=== PATIENT | male | born 1980 | race Caucasian/White ===

== ENCOUNTER 2017-07-23 10:02 | Emergency (ER) | payer BC, OTHER ==
[2017-07-23] MEDS ORDERED: RINGERS SOLUTION,LACTATED 1,000 ML IV ONE (10:17)
[2017-07-23] MEDS ORDERED: ONDANSETRON HCL INJ/PF 4 MG/2 ML SDV IV ONE (10:20)
[2017-07-23] MEDS ORDERED: KETOROLAC TROMETHAMINE INJ/PF 30 MG/1 ML SDV IV ONE (10:20)
--- NOTE | 2017-07-23 10:24 | ER Document Report ---
ED General - General Chief Complaint: Vomiting/Diarrhea Stated Complaint: VOMITING Time Seen by Provider: 07/23/17 10:16 TRAVEL OUTSIDE OF THE [place] 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 Patient states feeling shaky today therefore came to the ER for further evaluation. Patient does smoke however denies any alcohol or drug abuse. Patient states he was able tolerate Gatorade yesterday. States multiple bouts of vomiting diarrhea. No recent travel no recent antibiotics no sick contacts - Related Data Allergies/Adverse Reactions: codeine [Codeine] Allergy (Verified 07/23/17 10:02) Penicillins Allergy (Verified 07/23/17 10:02) Past Medical History - Social History Smoking Status: Unknown if Ever Smoked Family History: CAD, DM, Hypertension, Other - anemia, A f-b - Past Medical History Cardiac Medical History: Reports: Hx Atrial Fibrillation - reports everytime he comes here they cannot find it but was seen in [place] Pulmonary Medical History: Reports: Hx Asthma Psychiatric Medical History: Reports: Hx Depression Past Surgical History: Reports: Hx Oral Surgery - Immunizations Hx Diphtheria, Pertussis, Tetanus Vaccination: Yes Review of Systems - Review of Systems Constitutional: No symptoms reported EENT: No symptoms reported Cardiovascular: No symptoms reported Respiratory: No symptoms reported Gastrointestinal: Diarrhea, Nausea, Vomiting Genitourinary: No symptoms reported Male Genitourinary: No symptoms reported Musculoskeletal: No symptoms reported Skin: No symptoms reported Hematologic/Lymphatic: No symptoms reported Neurological/Psychological: No symptoms reported -: Yes All other systems reviewed and negative Physical Exam - Vital signs Vitals: Temp Pulse Resp BP Pulse Ox 99.5 F 86 18 151/92 H 100 07/23/17 10:06 07/23/17 10:06 07/23/17 10:06 07/23/17 10:06 07/23/17 10:06 Interpretation: Normal - General General appearance: Appears well, Alert - HEENT Head: Normocephalic, Atraumatic Eyes: Normal Pupils: PERRL Mucous membranes: Dry, Other - Dry lips and tacky tongue - Respiratory Respiratory status: No respiratory distress Chest status: Nontender Breath sounds: Normal Chest palpation: Normal - Cardiovascular Rhythm: Regular Heart sounds: Normal auscultation Murmur: No - Abdominal Inspection: Normal Distension: No distension Bowel sounds: Normal Tenderness: Nontender Organomegaly: No organomegaly - Back Back: Normal, Nontender - Extremities General upper extremity: Normal inspection, Nontender, Normal color, Normal ROM , Normal temperature General lower extremity: Normal inspection, Nontender, Normal color, Normal ROM , Normal temperature, Normal weight bearing. No: Rafiq's sign - Neurological Neuro grossly intact: Yes Cognition: Normal Orientation: AAOx4 [place] Coma Scale Eye Opening: Spontaneous Germaine Coma Scale Verbal: Oriented [place] Coma Scale Motor: Obeys Commands Germaine Coma Scale Total: 15 Speech: Normal Motor strength normal: LUE, RUE, LLE, RLE Sensory: Normal - Psychological Associated symptoms: Normal affect, Normal mood - Skin Skin Temperature: Warm Skin Moisture: Dry Skin Color: Normal Course - Re-evaluation Re-evalutation: 07/23/17 12:35 The patient presents with n/v/d without signs of peritonitis or other life- threatening or serious etiology. The patient appears stable for discharge and has been instructed to return immediately if the symptoms worsen in any way, or in 8-12hr if not improved for re-evaluation. The patient has been instructed to return if the symptoms worsen or change in any way. - Vital Signs Vital signs: Temp Pulse Resp BP Pulse Ox 99.5 F 86 18 151/92 H 100 07/23/17 10:06 07/23/17 10:06 07/23/17 10:06 07/23/17 10:06 07/23/17 10:06 - Laboratory Result Diagrams: 07/23/17 10:40 07/23/17 10:40 Laboratory results interpreted by me: 07/23/17 07/23/17 10:40 10:40 MCV 100 H MCH 34.3 H Glucose 115 H Discharge - Discharge Clinical Impression: Nausea vomiting and diarrhea Condition: Good Instructions: Gastroenteritis (adult) ([facility]) Additional Instructions: Recommend taking Tylenol Motrin for fevers and pain control. Also recommend taking Zofran or anything and provided. Please be aware that Phenergan may make you little bit sleepy. Return to ER for any concerns. Eat yogurt to help out with the diarrhea also he can increase her fiber to help out with diarrhea. Return to ER symptoms worsen. Prescriptions: Ondansetron [Zofran Odt] 4 mg PO Q6 PRN #30 tab.rapdis PRN Reason: For Nausea/Vomiting Promethazine HCl [Phenergan 25 mg Tablet] 25 mg PO Q6 #30 tablet Forms: Return to Work
[2017-07-23 10:53] LABS: ABSOLUTE EOSINOPHILS # (AUTO) 0.2 10^3/uL (0.0-0.6); ABSOLUTE LYMPHOCYTES (AUTO) 1.1 10^3/uL (0.5-4.7); ABSOLUTE MONOCYTES (AUTO) 0.7 10^3/uL (0.1-1.4); BASOPHILS % (AUTO) 0.1 % (0-2); HEMATOCRIT 48.5 % (37.9-51.0); HEMOGLOBIN 16.6 g/dL (13.5-17.0); LYMPHOCYTES % (AUTO) 15.5 % (13-45); MEAN CORPUSCULAR HEMOGLOBIN 34.3 pg (27.0-33.4); MEAN CORPUSCULAR HGB CONC 34.1 g/dL (32.0-36.0); MEAN CORPUSCULAR VOLUME 100 fl (80-97); MONOCYTES % (AUTO) 9.5 % (3-13); PLATELET COUNT 179 10^3/uL (150-450); RED BLOOD COUNT 4.83 10^6/uL (4.35-5.55); RED CELL DISTRIBUTION WIDTH 13.1 % (11.5-14.0); SEGMENTED NEUTROPHILS % (AUTO) 71.9 % (42-78); TOTAL CELLS COUNTED % (AUTO) 100 %
[2017-07-23 11:09] LABS: ANION GAP 14 (5-19); BLOOD UREA NITROGEN 11 mg/dL (7-20); CALCIUM 9.6 mg/dL (8.4-10.2); CARBON DIOXIDE 25 mmol/L (22-30); CHLORIDE 103 mmol/L (98-107); GLUCOSE 115 mg/dL (75-110); POTASSIUM 4.4 mmol/L (3.6-5.0); SODIUM 141.9 mmol/L (137-145)
[2017-07-23 12:40] VITALS: BP 138/83
== END 2017-07-23 12:40 | disposition home or self-care (01) ==
LOC: ER 10:02
DX: R11.2 Nausea with vomiting, unspecified (principal); R19.7 Diarrhea, unspecified; J45.909 Unspecified asthma, uncomplicated
CPT/HCPCS: 99284; 96361; 96374; 96375; 36415; 85025; 80048; J1885; J2405; J7120

== ENCOUNTER 2017-09-05 09:10 | Emergency (ER) | payer OTHER ==
[2017-09-05] MEDS ORDERED: ADENOSINE INJ/PF 6 MG/2 ML SDV IV ONE (09:30)
[2017-09-05] MEDS ORDERED: VERAPAMIL HCL INJ/PF 5 MG/2 ML SDV IV ONE ×2 (09:36→09:37)
[2017-09-05] MEDS ORDERED: DILTIAZEM HCL/D5W 125 MG/125 ML RTUINJ IV PRN (09:37)
[2017-09-05] MEDS ORDERED: NORMAL SALINE 1000 ML 1,000 ML IV ONE (09:42)
[2017-09-05] MEDS ORDERED: METOPROLOL TARTRATE PF/INJ 5 MG/5 ML SDV IV ONE (09:45)
--- NOTE | 2017-09-05 10:02 | EKG REPORT ---
SEVERITY:- ABNORMAL ECG - ATRIAL FIBRILLATION, RVR BORDERLINE T ABNORMALITIES, INFERIOR LEADS : Confirmed by: Rufus Clement 05-Sep-2017 10:00:35
--- NOTE | 2017-09-05 10:12 | ER Document Report ---
ED Cardiac - General Chief Complaint: Chest Pain Stated Complaint: CHEST PAIN Time Seen by Provider: 09/05/17 09:28 Notes: Patient awakened around 4 AM this morning and went let his dogs outside. When he returned to bed, he began to note his heart beating fast and irregular. He has known paroxysmal atrial fibrillation for 20 years. His mother says that he first had this condition when he was 17 and his heart rate was going about 300 a minute. He is not currently on any medications because he does not have enough money to pay for a doctor or the medications. He has been on medications in the past, but he says he still would get breakthrough rapid heart rate several times a year. He is never been considered for any ablation therapy. Patient has no other significant past medical history. At this time, he has some achy discomfort in the chest but no other significant symptoms. TRAVEL OUTSIDE OF THE [place] IN LAST 30 DAYS: No - Related Data Allergies/Adverse Reactions: codeine [Codeine] Allergy (Verified 09/05/17 09:13) Penicillins Allergy (Verified 09/05/17 09:13) Past Medical History - Social History Smoking Status: Current Every Day Smoker Chew tobacco use (# tins/day): - 15 Frequency of alcohol use: Occasional Drug Abuse: None Family History: Reviewed & Not Pertinent, CAD, DM, Hypertension, Other - anemia , A f-b Patient has suicidal ideation: No Patient has homicidal ideation: No - Past Medical History Cardiac Medical History: Reports: Hx Atrial Fibrillation - reports everytime he comes here they cannot find it but was seen in [place] Pulmonary Medical History: Reports: Hx Asthma Psychiatric Medical History: Reports: Hx Depression Past Surgical History: Reports: Hx Oral Surgery - Immunizations Hx Diphtheria, Pertussis, Tetanus Vaccination: Yes Review of Systems - Review of Systems Notes: REVIEW OF SYSTEMS: CONSTITUTIONAL : Denies fever. EENT: Denies eye, ear, nose or mouth or throat pain or other symptoms. CARDIOVASCULAR: See HPI. RESPIRATORY: Denies cough, chest congestion, or shortness of breath. GASTROINTESTINAL: Denies abdominal pain or nausea, vomiting, or diarrhea. GENITOURINARY: Denies difficulty or painful urinating, urinary frequency, blood in urine. MUSCULOSKELETAL: Denies back or neck pain. Denies joint pain or swelling. SKIN: Denies rash or skin lesions. NEUROLOGICAL: Denies LOC or altered mental status. Denies headache. Denies sensory loss or motor deficits. ALL OTHER SYSTEMS REVIEWED AND NEGATIVE. Physical Exam - Vital signs Vitals: Resp BP Pulse Ox 12 141/91 H 99 09/05/17 09:26 09/05/17 09:26 09/05/17 09:26 Interpretation: Tachycardic - Irregularly irregular - Notes Notes: PHYSICAL EXAMINATION: GENERAL: Well-appearing, in no acute distress. HEAD: Atraumatic, normocephalic. EYES: Pupils equal round and reactive to light, extraocular movements intact. ENT: oropharynx clear without exudates. Moist mucous membranes. NECK: Normal range of motion, supple. LUNGS: Breath sounds clear and equal bilaterally. HEART: Irregularly irregular rate and rhythm without murmurs. Heart rate 160 upon arrival. ABDOMEN: Soft, nontender. No guarding or rebound. No masses. BACK: No tenderness throughout entire back. EXTREMITIES: Normal range of motion without pain. NEUROLOGICAL: Normal speech, normal gait. Normal sensory, motor, and reflex exams. Awake, alert, and oriented x3. Cranial nerves normal. PSYCH: Normal mood, normal affect. SKIN: Warm, dry, no rashes. Course - Re-evaluation Re-evalutation: 09/05/17 10:09 Hospital is out of [facility]. Has been given 5 mg of verapamil IV and 5 mg of Lopressor IV. Heart rate is down to about 90-100 but still in atrial fibrillation. 09/05/17 10:41 Still in atrial fib, and heart rate has crept back up to about 115. I am going to give him some Lanoxin 0.25 mg IV. 09/05/17 12:00 Patient does not want to stay here any longer. He wants to go home and wait it out. He has done that in the past successfully. He definitely does not want to have electrical defibrillation. He has never had that before and says it is not going to happen today. Patient understands that he runs a risk of having a stroke. Labs look acceptable. Discussed with Dr. Fam. He advises Lopressor, aspirin, and follow-up in the office with him next week. - Vital Signs Vital signs: Temp Pulse Resp BP Pulse Ox 11 L 135/91 H 100 09/05/17 12:01 09/05/17 12:01 09/05/17 12:01 - Laboratory Result Diagrams: 09/05/17 09:25 09/05/17 09:25 Laboratory results interpreted by me: 09/05/17 09/05/17 09:25 09:25 Hgb 17.8 H Hct 52.3 H MCV 102 H MCH 34.8 H Sodium 147.8 H Glucose 129 H Calcium 10.8 H AST 79 H ALT 79 H Albumin 5.1 H Critical Care Note - Critical Care Note Total time excluding time spent on procedures (mins): 45 Discharge - Discharge Clinical Impression: Atrial fibrillation Condition: Stable Disposition: HOME, SELF-CARE Additional Instructions: Atrial Fibrillation Atrial fibrillation is an abnormal heart rhythm, caused by irregular electrical circuits in the upper heart chamber. It can be caused by heart valve disease, hardening of the arteries, or metabolic problems such as thyroid disease, or may occur without a clear cause. Atrial fibrillation may occur only occasionally, or may be chronic. Atrial fibrillation often results in a very fast heart rate, with palpitations, lightheadedness, and shortness of breath. Treatment is to slow the abnormally fast rate, and to convert the rhythm back to normal, if possible. Many patients stay in atrial fibrillation for years without symptoms or complications. Your doctor will decide whether you can be converted back to a normal heart rhythm. Contact the doctor or emergency medical system at once if you develop chest pain, shortness of breath, or severe lightheadedness, or if you develop any disturbance of consciousness, problems with speech, or localized weakness. ASPIRIN: Aspirin has been shown to have a beneficial effect on blood circulation by reducing the clotting effect of platelets in the blood. These beneficial effects can be achieved by taking just a single baby (81 mg) aspirin a day. It is recommended that any person over the age of forty take a single baby aspirin every day for heart and brain circulation, unless you are allergic to aspirin or have some significant bleeding disorder. It is strongly recommended that people who have proven cardiac or blood circulation disturbances should take a baby aspirin every day. Take 1 adult aspirin every day. BETA BLOCKERS: You have been given a prescription for a beta-jessica medication. This class of drugs is used for many purposes, including angina, high blood pressure , heart rhythm disturbances, tremors, and migraines. The medication works by interfering with the effects of the sympathetic nervous system (the sympathetic system has adrenaline-like effects of constricting blood vessels, increasing heart rate, and increasing blood pressure). This medication is usually well-tolerated. However, some patients have side effects such as fatigue, depression, or dizziness. Persons with asthma may develop wheezing from this medicine. Contact your doctor if you are bothered by any side effects. Do not take any cold or allergy medication without first consulting your doctor. Do not stop the medicine without consulting your doctor, as a "rebound " worsening of your condition can result. Take the beta jessica medication prescribed. FOLLOW-UP CARE: If you have been referred to a physician for follow-up care, call the physician s office for an appointment as you were instructed or within the next two days. If you experience worsening or a significant change in your symptoms, notify the physician immediately or return to the Emergency Department at any time for re-evaluation. Call Dr. Fam on his cell phone at to schedule an appointment to be seen by him in his office next week. Prescriptions: Metoprolol Tartrate [Lopressor 50 mg Tablet] 50 mg PO BID #30 tablet Forms: Return to Work
[2017-09-05 10:30] LABS: ABSOLUTE EOSINOPHILS # (AUTO) 0.4 10^3/uL (0.0-0.6); ABSOLUTE LYMPHOCYTES (AUTO) 2.3 10^3/uL (0.5-4.7); ABSOLUTE MONOCYTES (AUTO) 0.9 10^3/uL (0.1-1.4); ABSOLUTE NEUT (AUTO) 5.9 10^3/uL (1.7-8.2); BASOPHILS % (AUTO) 0.4 % (0-2); EOSINOPHILS % (AUTO) 3.9 % (0-6); HEMATOCRIT 52.3 % (37.9-51.0); HEMOGLOBIN 17.8 g/dL (13.5-17.0); LYMPHOCYTES % (AUTO) 24.3 % (13-45); MEAN CORPUSCULAR HEMOGLOBIN 34.8 pg (27.0-33.4); MEAN CORPUSCULAR HGB CONC 34.1 g/dL (32.0-36.0); MEAN CORPUSCULAR VOLUME 102 fl (80-97); MONOCYTES % (AUTO) 9.4 % (3-13); PLATELET COUNT 223 10^3/uL (150-450); RED BLOOD COUNT 5.13 10^6/uL (4.35-5.55); RED CELL DISTRIBUTION WIDTH 12.9 % (11.5-14.0); TOTAL CELLS COUNTED % (AUTO) 100 %; WHITE BLOOD COUNT 9.5 10^3/uL (4.0-10.5)
[2017-09-05 10:38] LABS: ALANINE AMINOTRANSFERASE 79 U/L (21-72); ALBUMIN 5.1 g/dL (3.5-5.0); ALKALINE PHOSPHATASE 90 U/L (38-126); ASPARTATE AMINO TRANSFERASE 79 U/L (17-59); BILIRUBIN,DIRECT 0.4 mg/dL (0.0-0.4); BILIRUBIN,TOTAL 0.6 mg/dL (0.2-1.3); BLOOD UREA NITROGEN 16 mg/dL (7-20); CALCIUM 10.8 mg/dL (8.4-10.2); CARBON DIOXIDE 28 mmol/L (22-30); GLUCOSE 129 mg/dL (75-110); SODIUM 147.8 mmol/L (137-145); TOTAL PROTEIN 8.1 g/dL (6.3-8.2)
[2017-09-05] MEDS ORDERED: DIGOXIN INJ 0.5 MG/2 ML AMPULE IV ONE ×2 (10:40→11:58)
[2017-09-05 10:41] LABS: ANION GAP 14 (5-19); CHLORIDE 106 mmol/L (98-107)
[2017-09-05 10:49] LABS: FREE T4 (FREE THYROXINE) 1.19 ng/dL (0.78-2.19)
[2017-09-05 11:03] LABS: THYROID STIMULATING HORMONE 1.6 uIU/mL (0.47-4.68)
[2017-09-05] MEDS ORDERED: ASPIRIN 325 MG TABLET PO ONE (11:59)
[2017-09-05 12:30] VITALS: BP 135/91
== END 2017-09-05 12:30 | disposition home or self-care (01) ==
LOC: ER 09:10
DX: I48.0 Paroxysmal atrial fibrillation (principal); R00.0 Tachycardia, unspecified; J45.909 Unspecified asthma, uncomplicated; F17.200 Nicotine dependence, unspecified, uncomplicated; Z88.5 Allergy status to narcotic agent; Z88.0 Allergy status to penicillin; Z82.49 Family history of ischemic heart disease and other diseases of the circulatory system
CPT/HCPCS: 93005; 96376; 99291; 96361; 96374; 96375; 36415; 84439; 84443; 85025; 80053; 84484; 93010; J1160; J3490 ×2; J7030

== ENCOUNTER 2018-01-03 14:23 | Emergency (ER) | payer OTHER ==
[2018-01-03] MEDS ORDERED: RABIES VACCINE (PCEC)/PF 2.5 UNIT/1 ML KIT IM ONE (14:41)
[2018-01-03] MEDS ORDERED: RABIES IMMUNE GLOBULIN INJ/PF 300 UNIT/2 ML SDV IM ONE (14:41)
[2018-01-03] MEDS ORDERED: LIDOCAINE 1% INJ-PF (10 MG/ML) 30 ML SDV INJ ONE (14:41)
--- NOTE | 2018-01-03 14:47 | ER Document Report ---
ED Medical Screen (RME) - General Chief Complaint: Dog Bite Stated Complaint: DOG BITE/RIGHT FOREARM Time Seen by Provider: 01/03/18 14:35 Notes: 37 year old right-handed male bitten by an unknown dog on his right forearm ulnar aspect just prior to arrival. Does not know the dog's vaccination status and does not think he can find the dog. Complains of a large wound to his right forearm as well as some numbness and tingling to his third fourth and fifth digits. Patient's only relevant past medical history includes atrial fibrillation and taking aspirin as a blood thinner. TRAVEL OUTSIDE OF THE [place] IN LAST 30 DAYS: No - Related Data Allergies/Adverse Reactions: codeine [Codeine] Allergy (Verified 09/05/17 09:13) Penicillins Allergy (Verified 09/05/17 09:13) Past Medical History - General Information source: Patient - Social History Cigarette use (# per day): Yes Chew tobacco use (# tins/day): No Frequency of alcohol use: Occasional Drug Abuse: None Family history: Reviewed & Not Pertinent - Past Medical History Cardiac Medical History: Reports: Hx Atrial Fibrillation - reports everytime he comes here they cannot find it but was seen in [place] Pulmonary Medical History: Reports: Hx Asthma Renal/ Medical History: Denies: Hx Peritoneal Dialysis Psychiatric Medical History: Reports: Hx Depression Past Surgical History: Reports: Hx Oral Surgery - Immunizations Hx Diphtheria, Pertussis, Tetanus Vaccination: Yes Review of Systems - Review of Systems Musculoskeletal: See HPI Skin: See HPI Physical Exam - Vital signs Vitals: Temp Pulse Resp BP Pulse Ox 98.4 F 90 16 157/92 H 98 01/03/18 14:32 01/03/18 14:32 01/03/18 14:32 01/03/18 14:32 01/03/18 14:32 Interpretation: Hypertensive - Notes Notes: 3-4 cm gaping wound to the ulnar aspect of the right forearm that does not have any active bleeding, patient appears to have full range of motion of all 5 digits, complains of tingling in digits 3 4 and 5. Patient is able to fully flex and extend his wrist. Course - Re-evaluation Re-evalutation: 01/03/18 14:47 We will need to be irrigated, patient will need antibiotic prophylaxis, rabies vaccine and rabies immunoglobulin. Given the size of the wound patient will likely need 2 to 3 sutures to very loosely approximate the wound, consideration should be given to inserting a drain. - Vital Signs Vital signs: Temp Pulse Resp BP Pulse Ox 98.4 F 90 16 157/92 H 98 01/03/18 14:32 01/03/18 14:32 01/03/18 14:32 01/03/18 14:32 01/03/18 14:32
--- NOTE | 2018-01-03 15:10 | ER Document Report ---
ED Animal Bite - General Chief Complaint: Dog Bite Stated Complaint: DOG BITE/RIGHT FOREARM Time Seen by Provider: 01/03/18 14:35 Mode of Arrival: Ambulatory Information source: Patient Notes: Patient said he was walking his dog in his neighborhood when suddenly his dog got loose and went to another dog. The dog was a stray dog. He tried to rescue his dog from the other dog and a stray dog bit him on the right distal forearm and running away into the wounds. He said the dog looks like a mixed pit bull and is black and white in color but he does not know the customer support advisor of the dog. TRAVEL OUTSIDE OF THE [place] IN LAST 30 DAYS: No - HPI Location of injury: RUE Severity of injury: Bitten Onset: This morning Quality of pain: Dull Pain Level: 2 Severity: Mild Context of attack: "Unprovoked" attack, Animals fighting Type of animal: Dog Appearance of animal: Unknown Animal's immunizations: Unknown Animal captured or known: No Animal control notified: Yes Animal control form completed: Yes - Related Data Allergies/Adverse Reactions: codeine [Codeine] Allergy (Verified 09/05/17 09:13) Penicillins Allergy (Verified 09/05/17 09:13) Past Medical History - General Information source: Patient - Social History Smoking Status: Unknown if Ever Smoked Cigarette use (# per day): Yes Chew tobacco use (# tins/day): No Frequency of alcohol use: Occasional Drug Abuse: None Family History: Reviewed & Not Pertinent, CAD, DM, Hypertension, Other - anemia , A f-b - Past Medical History Cardiac Medical History: Reports: Hx Atrial Fibrillation - reports everytime he comes here they cannot find it but was seen in [place] Pulmonary Medical History: Reports: Hx Asthma Renal/ Medical History: Denies: Hx Peritoneal Dialysis Psychiatric Medical History: Reports: Hx Depression Past Surgical History: Reports: Hx Oral Surgery - Immunizations Hx Diphtheria, Pertussis, Tetanus Vaccination: Yes Review of Systems - Review of Systems Constitutional: denies: Chills, Fever, Malaise, Weakness EENT: denies: Eye pain, Eye discharge, Blurred vision, Ear discharge Cardiovascular: denies: Chest pain, Palpitations, Heart racing Respiratory: No symptoms reported Gastrointestinal: No symptoms reported Genitourinary: No symptoms reported Male Genitourinary: No symptoms reported Musculoskeletal: Other - Right distal half extremity laceration from dog bite injury. Skin: No symptoms reported Hematologic/Lymphatic: No symptoms reported Neurological/Psychological: No symptoms reported -: Yes All other systems reviewed and negative Physical Exam - Vital signs Vitals: Temp Pulse Resp BP Pulse Ox 98.4 F 90 16 157/92 H 98 01/03/18 14:32 01/03/18 14:32 01/03/18 14:32 01/03/18 14:32 01/03/18 14:32 - General General appearance: Appears well, Alert In distress: None - HEENT Head: Normocephalic, Atraumatic Eyes: Normal Pupils: PERRL - Respiratory Respiratory status: No respiratory distress Chest status: Nontender Breath sounds: Normal Chest palpation: Normal - Cardiovascular Rhythm: Regular Heart sounds: Normal auscultation Murmur: No - Abdominal Inspection: Normal Distension: No distension Bowel sounds: Normal Tenderness: Nontender Organomegaly: No organomegaly - Back Back: Normal, Nontender - Extremities General upper extremity: Tender, Normal strength, Normal temperature General lower extremity: Normal inspection Shoulder: Normal Arm: Normal Elbow: Normal Forearm: Tender, Laceration - 10 cm laceration on the medial aspect of the distal right forearm. There is muscle involvement. Bleeding is controlled. Wrist: Normal Hand: Normal Hip: Normal Thigh: Normal Knee: Normal Ankle: Normal Foot: Normal - Neurological Neuro grossly intact: Yes Cognition: Normal Orientation: AAOx4 [place] Coma Scale Eye Opening: Spontaneous [place] Coma Scale Verbal: Oriented [place] Coma Scale Motor: Obeys Commands Germaine Coma Scale Total: 15 Speech: Normal Motor strength normal: LUE, RUE, LLE, RLE Sensory: Normal - Psychological Associated symptoms: Normal affect, Normal mood - Skin Skin Temperature: Warm Skin Moisture: Dry Skin Color: Normal Course - Vital Signs Vital signs: Temp Pulse Resp BP Pulse Ox 98.4 F 79 16 145/89 H 100 01/03/18 14:32 01/03/18 17:30 01/03/18 17:30 01/03/18 17:30 01/03/18 17:30 - Transfer of Care Notes: 01/03/18 19:06 Dog bite to the distal aspect of the right forearm. 01/03/18 19:06 Deep laceration to the distal aspect of the right forearm. Procedures - Laceration/Wound Repair Right Distal Arm Time completed: 16:00 Wound length (cm): 10 Wound's Depth, Shape: Into muscle, Linear Laceration pre-procedure: Betadine prep applied, Sterile drapes applied, Shur- Clens applied Anesthetic type: 1% Lidocaine w/epi Volume Anesthetic (mLs): 10 Wound explored: No foreign body removed, Contaminated Irrigated w/ Saline (mLs): 1,000 Wound Repaired With: Sutures Suture Size/Type: 3:0, Prolene Number of Sutures: 5 Layer Closure?: Yes Deep Layer Suture Size/Type: 4:0, Other - Vicryl Number Deep Layer Sutures: 4 Post-procedure wound care: Sterile dressing applied Post-procedure NV exam normal: Yes Complications: No Notes: 01/03/18 18:58 Rabies immune globulin was injected into the wound generously. Critical Care Note - Critical Care Note Total time excluding time spent on procedures (mins): 40 Discharge - Discharge Clinical Impression: Dog bite of forearm Qualifiers: Encounter type: initial encounter Laterality: right Qualified Code(s): S51.851A - Open bite of right forearm, initial encounter; W54.0XXA - Bitten by dog, initial encounter; W54.0XXA - Bitten by dog, initial encounter Laceration of right forearm Qualifiers: Encounter type: initial encounter Qualified Code(s): S51.811A - Laceration without foreign body of right forearm, initial encounter Condition: Stable Disposition: HOME, SELF-CARE Instructions: Animal Bites ([facility]) Additional Instructions: Please return to the emergency room on Saturday for wound check and also to get the second dose of your rabies vaccine. This Rabies vaccine will be repeated on day 3, 7, 14,and 28. Return to the emergency room for any other medical concerns. Prescriptions: Clindamycin HCl 450 mg PO TID #63 capsule Clindamycin HCl 450 mg PO TID #27 capsule Ibuprofen 800 mg PO TID #30 tablet Ibuprofen 800 mg PO TID #9 tablet Mupirocin [Bactroban 2% Ointment 22 gm] 1 applic TP TID #1 tube Sulfamethoxazole/Trimethoprim [Bactrim Ds Tablet] 2 each PO BID #12 tablet Sulfamethoxazole/Trimethoprim [Bactrim Ds Tablet] 2 each PO BID #28 tablet Forms: Return to Work
--- NOTE | 2018-01-03 15:37 | RADIOLOGY REPORT (SQ) ---
EXAM DESCRIPTION: FOREARM RIGHT COMPLETED DATE/TIME: 01/03/2018 2:56 pm REASON FOR STUDY: dog bite to forearm COMPARISON: None. NUMBER OF VIEWS: Two views. TECHNIQUE: Two radiographic images acquired of the right forearm, including elbow and wrist in at le ast one projection. LIMITATIONS: None. FINDINGS: MINERALIZATION: Normal. BONES: No acute fracture. No worrisome bone lesions. SOFT TISSUES: Soft tissue laceration. No foreign body. OTHER: No other significant finding. IMPRESSION: Soft tissue laceration. No foreign body. No acute fracture. TECHNICAL DOCUMENTATION: JOB ID: [id number] [employer]- All Rights Reserved Reading location - IP/workstation name: [email or web address]
[2018-01-03] MEDS ORDERED: SULFAMETHOXAZOLE/TRIMETHOPRIM 800-160 MG TABLET PO ONE (16:21)
[2018-01-03] MEDS ORDERED: CLINDAMYCIN 900 MG/D5W RTU 900 MG/50 ML RTUPB IV ONE (16:21)
[2018-01-03] MEDS ORDERED: DIPH/PERTUSS(ACELL)/TETANUS VAC/PF 0.5 ML SYR (>=10YO) IM ONE (16:22)
[2018-01-03] MEDS ORDERED: ONDANSETRON 4 MG TAB.RAPDIS PO ONE (16:22)
[2018-01-03] MEDS ORDERED: CLINDAMYCIN HCL 150 MG CAPSULE PO ONE ×2 (16:42→16:43)
[2018-01-03 18:32] VITALS: BP 145/89
== END 2018-01-03 17:45 | disposition home or self-care (01) ==
LOC: ER 14:23
DX: S56.921A Laceration of unspecified muscles, fascia and tendons at forearm level, right arm, initial encounter (principal); S51.851A Open bite of right forearm, initial encounter; W54.0XXA Bitten by dog, initial encounter; Y93.K1 Activity, walking an animal; J45.909 Unspecified asthma, uncomplicated; Z23 Encounter for immunization; Z88.5 Allergy status to narcotic agent; Z88.0 Allergy status to penicillin
CPT/HCPCS: 90471; 96372; 99285

== ENCOUNTER → 2018-04-09 | Outpatient (CLI) | payer OTHER ==
--- NOTE | 2018-04-09 12:53 | EKG REPORT ---
SEVERITY:- ABNORMAL ECG - SINUS RHYTHM NONSPECIFIC ST-T CHANGES- INFERIOR LEADS : Confirmed by: Addison Saul MD 09-Apr-2018 12:52:12
== END ==
LOC: OD 08:48
PROVIDERS: ATTEND Family Medicine
DX: R42 Dizziness and giddiness (principal)
CPT/HCPCS: 93005; 93010

== ENCOUNTER 2018-08-29 18:44 | Emergency (ER) | payer OTHER ==
[2018-08-29] MEDS ORDERED: KETOROLAC TROMETHAMINE INJ/PF 30 MG/1 ML SDV IV ONE (19:37)
[2018-08-29] MEDS ORDERED: MORPHINE SULFATE 10 MG/ML INJ IV ONE (19:39)
--- NOTE | 2018-08-29 19:40 | ER Document Report ---
ED Medical Screen (RME) - General Chief Complaint: Possible Kidney Stone Stated Complaint: ABDOMINAL PAIN Time Seen by Provider: 08/29/18 19:36 Primary Care Provider: ANNETTE LINK MD [Primary Care Provider] - Follow up as needed Information source: Patient Notes: Patient presents complaining of right flank pain that radiates to right lower quadrant. Patient complains of difficulty voiding with hematuria. Patient denies any fever. Patient reports previous history of kidney stones but states his last stone was over 10 years ago. I have greeted and performed a rapid initial assessment of this patient. A comprehensive ED assessment and evaluation of the patient, analysis of test results and completion of the medical decision making process will be conducted by additional ED providers. TRAVEL OUTSIDE OF THE [place] IN LAST 30 DAYS: No - Related Data Allergies/Adverse Reactions: codeine [Codeine] Allergy (Verified 08/29/18 18:48) Penicillins Allergy (Verified 08/29/18 18:48) Past Medical History - Social History Chew tobacco use (# tins/day): No Frequency of alcohol use: Occasional Drug Abuse: None Family history: Reviewed & Not Pertinent - Past Medical History Cardiac Medical History: Reports: Hx Atrial Fibrillation - reports everytime he comes here they cannot find it but was seen in [place] [facility] Medical History: Reports: Hx Asthma Renal/ Medical History: Denies: Hx Peritoneal Dialysis Psychiatric Medical History: Reports: Hx Depression Past Surgical History: Reports: Hx Oral Surgery - Immunizations Hx Diphtheria, Pertussis, Tetanus Vaccination: Yes Physical Exam - Vital signs Vitals: Temp Pulse Resp BP Pulse Ox 99.2 F 63 16 171/92 H 97 08/29/18 18:59 08/29/18 18:59 08/29/18 18:59 08/29/18 18:59 08/29/18 18:59 - Back Back: CVA tenderness - Right Course - Vital Signs Vital signs: Temp Pulse Resp BP Pulse Ox 99.2 F 63 16 171/92 H 97 08/29/18 18:59 08/29/18 18:59 08/29/18 18:59 08/29/18 18:59 08/29/18 18:59 Doctor's Discharge - Discharge Referrals: ANNETTE LINK MD [Primary Care Provider] - Follow up as needed
[2018-08-29 20:08] LABS: ABSOLUTE EOSINOPHILS # (AUTO) 0.4 10^3/uL (0.0-0.6); ABSOLUTE LYMPHOCYTES (AUTO) 2.2 10^3/uL (0.5-4.7); ABSOLUTE NEUT (AUTO) 9.3 10^3/uL (1.7-8.2); BASOPHILS % (AUTO) 0.4 % (0-2); EOSINOPHILS % (AUTO) 2.9 % (0-6); HEMATOCRIT 42.4 % (37.9-51.0); HEMOGLOBIN 14.4 g/dL (13.5-17.0); MEAN CORPUSCULAR HEMOGLOBIN 33.8 pg (27.0-33.4); MEAN CORPUSCULAR HGB CONC 33.9 g/dL (32.0-36.0); MEAN CORPUSCULAR VOLUME 100 fl (80-97); PLATELET COUNT 212 10^3/uL (150-450); RED BLOOD COUNT 4.25 10^6/uL (4.35-5.55); RED CELL DISTRIBUTION WIDTH 12.9 % (11.5-14.0); SEGMENTED NEUTROPHILS % (AUTO) 71.7 % (42-78); TOTAL CELLS COUNTED % (AUTO) 100 %
--- NOTE | 2018-08-29 20:19 | RADIOLOGY REPORT (SQ) ---
CT ABDOMEN PELVIS WITHOUT IV CONTRAST HISTORY: Right flank pain. COMPARISON: None. TECHNIQUE: CT scan of the abdomen and pelvis was performed without IV contrast. This exam was performed according to our departmental dose-optimization program, which includes automated exposure control, adjustment of the mA and/or kV according to patient size and/or use of iterative reconstruction technique. FINDINGS: The lung bases are clear. No pleural or pericardial effusions. There is no hiatal hernia. The gallbladder is contracted, limiting evaluation. The liver, spleen, pancreas, adrenal glands, and left kidney are normal. There is a 4 mm stone at the right UVJ with mild right hydroureteronephrosis and inflammatory changes. No small bowel obstruction. The appendix is normal. There is no evidence of diverticulitis. No intraperitoneal free fluid or free air is identified. The aorta is normal caliber. No acute osseous findings are appreciated. No body wall hernia is seen. IMPRESSION: 4 mm stone at the right UVJ with right-sided obstructive symptoms.
[2018-08-29 20:31] LABS: ALANINE AMINOTRANSFERASE 64 U/L (21-72); ALBUMIN 4.8 g/dL (3.5-5.0); ALKALINE PHOSPHATASE 83 U/L (38-126); ANION GAP 12 (5-19); ASPARTATE AMINO TRANSFERASE 46 U/L (17-59); BILIRUBIN,DIRECT 0.2 mg/dL (0.0-0.4); BILIRUBIN,TOTAL 0.4 mg/dL (0.2-1.3); BLOOD UREA NITROGEN 27 mg/dL (7-20); CALCIUM 11.1 mg/dL (8.4-10.2); CARBON DIOXIDE 26 mmol/L (22-30); CHLORIDE 102 mmol/L (98-107); GLUCOSE 105 mg/dL (75-110); POTASSIUM 4.5 mmol/L (3.6-5.0); SODIUM 139.7 mmol/L (137-145); TOTAL PROTEIN 7.9 g/dL (6.3-8.2)
[2018-08-29 20:44] LABS: APPEARANCE,URINE CLOUDY; BILIRUBIN,URINE NEGATIVE (NEGATIVE); COLOR,URINE YELLOW; GLUCOSE, URINE NEGATIVE (NEGATIVE); KETONES,URINE NEGATIVE (NEGATIVE); LEUKOCYTE ESTERASE,URINE NEGATIVE (NEGATIVE); NITRITE,URINE NEGATIVE (NEGATIVE); PROTEIN,URINE 30 mg/dL (NEGATIVE); URINE SPECIFIC GRAVITY 1.031; UROBILINOGEN,URINE NEGATIVE mg/dL (<2.0)
[2018-08-30] MEDS ORDERED: MORPHINE SULFATE 10 MG/ML INJ IV PRN (01:29)
[2018-08-30] MEDS ORDERED: KETOROLAC TROMETHAMINE INJ/PF 30 MG/1 ML SDV IV ONE (01:29)
[2018-08-30] MEDS ORDERED: TAMSULOSIN HCL 0.4 MG CAP.SR.24H PO ONE (01:29)
[2018-08-30] MEDS ORDERED: ONDANSETRON ODT 4 MG TAB (6 TAB/ER DISP) PO PRN (01:31)
[2018-08-30] MEDS ORDERED: HYDROCODONE/ACETAMINOPHEN 5-325 MG (6 TAB/ER DISP) PO PRN (01:31)
--- NOTE | 2018-08-30 01:32 | ER Document Report ---
ED General - General Chief Complaint: Possible Kidney Stone Stated Complaint: ABDOMINAL PAIN Time Seen by Provider: 08/29/18 19:36 Primary Care Provider: ANNETTE LINK MD [Primary Care Provider] - Follow up in 3-5 days Notes: Patient is a 38-year-old male with a past medical history of nephrolithiasis resents with 12 hours of severe pain to the right flank radiating to the right lower abdomen. States the pain started abruptly, is severe, stabbing and constant in nature. Nothing seems to improve or worsen the pain. States this feels very similar to when he had a kidney stone in the past. Notes associated nausea but no vomiting. Has not seen his primary physician regarding today's concerns. Denies any history of complicated kidney stones in the past. TRAVEL OUTSIDE OF THE [place] IN LAST 30 DAYS: No - Related Data Allergies/Adverse Reactions: codeine [Codeine] Allergy (Verified 08/29/18 18:48) Penicillins Allergy (Verified 08/29/18 18:48) Past Medical History - General Information source: Patient - Social History Smoking Status: Current Every Day Smoker Chew tobacco use (# tins/day): No Frequency of alcohol use: Occasional Drug Abuse: None Lives with: Spouse/Significant other Family History: Reviewed & Not Pertinent, CAD, DM, Hypertension, Other - anemia, A f-b Patient has suicidal ideation: No Patient has homicidal ideation: No - Past Medical History Cardiac Medical History: Reports: Hx Atrial Fibrillation - reports everytime he comes here they cannot find it but was seen in [place] [facility] Medical History: Reports: Hx Asthma Renal/ Medical History: Denies: Hx Peritoneal Dialysis Psychiatric Medical History: Reports: Hx Depression Past Surgical History: Reports: Hx Oral Surgery - Immunizations Hx Diphtheria, Pertussis, Tetanus Vaccination: Yes Review of Systems - Review of Systems Notes: Constitutional: Negative for fever. HENT: Negative for sore throat. Eyes: Negative for visual changes. Cardiovascular: Negative for chest pain. Respiratory: Negative for shortness of breath. Gastrointestinal: Positive for right flank pain and nausea Genitourinary: Positive for hematuria Musculoskeletal: Negative for back pain. Skin: Negative for rash. Neurological: Negative for headaches, weakness or numbness. 10 point ROS negative except as marked above and in HPI. Physical Exam - Vital signs Vitals: Temp Pulse Resp BP Pulse Ox 99.2 F 63 16 171/92 H 97 08/29/18 18:59 08/29/18 18:59 08/29/18 18:59 08/29/18 18:59 08/29/18 18:59 Interpretation: Hypertensive Notes: PHYSICAL EXAMINATION: GENERAL: Appears moderately uncomfortable but in no acute distress HEAD: Atraumatic, normocephalic. EYES: Pupils equal round and reactive to light, extraocular movements intact, sclera anicteric, conjunctiva are normal. ENT: nares patent, oropharynx clear without exudates. Mildly dry mucous membranes. NECK: Normal range of motion, supple without lymphadenopathy LUNGS: Breath sounds clear to auscultation bilaterally and equal. No wheezes rales or rhonchi. HEART: Regular rate and rhythm without murmurs ABDOMEN: Soft, nontender, normoactive bowel sounds. No guarding, no rebound. No masses appreciated. Right flank pain on palpation. EXTREMITIES: Normal range of motion, no pitting or edema. No cyanosis. NEUROLOGICAL: No focal neurological deficits. Moves all extremities spontaneously and on command. PSYCH: Normal mood, normal affect. SKIN: Warm, Dry, normal turgor, no rashes or lesions noted. Course - Re-evaluation Re-evalutation: 08/30/18 01:32 Presents with findings consistent with acute nephrolithiasis. Urinalysis does show hematuria. Laboratory otherwise unremarkable. CT obtained in triage does demonstrate a 4 mm right UVJ. Pain was able to be controlled here in the emergency department. Patient is tolerating oral intake. Clinical history is not consistent with an acute abdominal aneurysm or dissection, DE, or pulmonary embolus. Urinalysis does not show findings consistent with an infected stone. Vitals have remained within normal limits. Patient will be discharged with recommendations to follow-up with urology, pain medications, and return precautions. At this time will discharge with return precautions and follow-up recommendations. Verbal discharge instructions given a the bedside and opportunity for questions given. Medication warnings reviewed. Patient is in agreement with this plan and has verbalized understanding of return precautions and the need for primary care follow-up in the next 24-72 hours. - Vital Signs Vital signs: Temp Pulse Resp BP Pulse Ox 98.5 F 64 20 141/89 H 98 08/30/18 01:54 08/30/18 01:54 08/30/18 01:54 08/30/18 01:54 08/30/18 01:54 - Laboratory Result Diagrams: 08/29/18 19:50 08/29/18 19:50 Laboratory results interpreted by me: 08/29/18 08/29/18 08/29/18 19:50 19:50 20:00 WBC 13.0 H RBC 4.25 L MCV 100 H MCH 33.8 H Absolute Neutrophils 9.3 H BUN 27 H Creatinine 1.36 H Est GFR (Non-Af Amer) 58 L Calcium 11.1 H Urine Protein 30 H Urine Blood LARGE H - Diagnostic Test Radiology reviewed: Reports reviewed Discharge - Discharge Clinical Impression: Right kidney stone, Right flank pain Condition: Good Disposition: HOME, SELF-CARE Additional Instructions: Your symptoms should improve over the course of the next one week. If you continue to have pain for greater than one week or your pain is not controlled w ith the pain medications that you have been sent home with you need to return to the emergency department. Please also return if you develop fever, persistent vomiting, or any other symptoms that are concerning to you. For your pain: Take ibuprofen 600 mg and acetaminophen 1000 mg every 6 hours together. If this does not control your pain you may take 15 mg of oral morphine every 4 hours as needed. Please be very careful about using the oral morphine and only use this for severe pain. You are also been sent home with a medication called Flomax to help pass the stone. You've been given Zofran to assist with nausea. Please follow-up with urology in the next 2-3 days. Prescriptions: Morphine Sulfate [Morphine Ir 15 mg Tablet] 15 mg PO Q6HP PRN #12 tablet PRN Reason: Tamsulosin HCl [Flomax 0.4 mg Cap.sr] 0.4 mg PO DAILY #7 cap.sr.24h Forms: Return to Work Referrals: ANNETTE LINK MD [Primary Care Provider] - Follow up in 3-5 days
[2018-08-30 02:03] VITALS: BP 141/89
== END 2018-08-30 02:03 | disposition home or self-care (01) ==
LOC: ER 18:44
DX: N20.0 Calculus of kidney (principal); R31.9 Hematuria, unspecified; R10.9 Unspecified abdominal pain; F17.200 Nicotine dependence, unspecified, uncomplicated; Z87.442 Personal history of urinary calculi; Z88.6 Allergy status to analgesic agent; Z88.0 Allergy status to penicillin
CPT/HCPCS: 96376; 99284; 96374; 96375; 36415; 85025; 80053; 81001; 74176; J1885 ×2; J2270 ×2